=== PATIENT | male | born 1980 | race Caucasian/White ===

== ENCOUNTER 2017-12-29 12:35 | Inpatient (IN) | payer MEDICARE, OTHER ==
[~2017-12-29] VITALS: Ht 182.9 cm; Wt 65.9 kg
[~2017-12-29 12:35] MED LIST: DRON2.5C10 PO; EPIN0.3A3 IM; MECL25TA3 PO; PROM25SU46 RC
[2017-12-29 14:15] LABS: CLARITY,URINE CLEAR (Clear); COLOR,URINE STRAW (Yellow); GLUCOSE, URINE NEGATIVE (Neg); KETONES,URINE NEGATIVE (Neg); LEUKOCYTE ESTERASE ,URINE NEGATIVE (Neg); NITRITES, URINE NEGATIVE (Neg); OCCULT BLOOD,URINE NEGATIVE (Neg); PROTEIN,URINE NEGATIVE (Neg); UROBILINOGEN,URINE 0.2 E.U/dL (0.2-1.0)
[2017-12-29] MEDS ORDERED: HYDROmorphone 1 mg/ml syringe IM ONE (14:15)
[2017-12-29 14:16] LABS: UA COLLECTION TYPE CLN CATCH MIDSTREAM
[2017-12-29] MEDS ORDERED: HYDROmorphone 1 mg/ml syringe IV ONE (15:40)
[2017-12-29] MEDS ORDERED: ondansetron/PF 4mg/2ml inj IV ONE (15:40)
[2017-12-29 16:09] LABS: BASOPHILS % (AUTO) 0.4 % (0-1); EOSINOPHILS # (AUTO) 0.3 X10'3 (0-0.9); EOSINOPHILS % (AUTO) 5.4 % (0-6); HEMATOCRIT 40.7 % (42.0-52.0); HEMOGLOBIN 13.6 g/dl (14.0-17.9); LYMPHOCYTES # (AUTO) 1.3 X10'3 (1.1-4.8); MEAN CORPUSCULAR HEMOGLOBIN 31.7 PG (27.0-31.0); MEAN CORPUSCULAR HGB CONC 33.4 % (33.0-36.5); MEAN CORPUSCULAR VOLUME 94.9 FL (78-98); MEAN PLATELET VOLUME 6.8 FL (7.4-10.4); MONOCYTES # (AUTO) 0.3 X10'3 (0-0.9); MONOCYTES % (AUTO) 6.7 % (2-12); NEUTROPHILS # (AUTO) 2.9 X10'3 (1.8-7.7); NEUTROPHILS % (AUTO) 60.5 % (42-75); PLATELET COUNT 279 X10'3 (140-440); RED BLOOD COUNT 4.29 X10'6 (4.70-6.10); RED CELL DISTRIBUTION WIDTH 13.3 % (11.5-14.5); WHITE BLOOD COUNT 4.8 X10'3 (4.5-11.0)
[2017-12-29 16:23] LABS: ALANINE AMINOTRANSFERASE 27 U/L (12-78); ALBUMIN 3.8 G/DL (3.4-5.0); ALBUMIN/GLOBULIN RATIO 1.1 (1.1-1.5); ALKALINE PHOSPHATASE 65 IU/L (46-116); ANION GAP 7 (8-16); ASPARTATE AMINO TRANSFERASE 15 U/L (10-37); BILIRUBIN,TOTAL 0.9 MG/DL (0.1-1.0); BLOOD UREA NITROGEN 14 MG/DL (7-18); BUN/CREATININE RATIO 14.9 (5.4-32.0); CALCIUM 9.3 MG/DL (8.5-10.1); CHLORIDE 104 MMOL/L (99-107); CREATININE 0.94 MG/DL (0.60-1.10); GLUCOSE 81 MG/DL (70-104); POTASSIUM 3.7 MMOL/L (3.5-5.1); SODIUM 141 MMOL/L (135-145); TOTAL CARBON DIOXIDE 30.1 MMOL/L (24-32); TOTAL PROTEIN 7.4 G/DL (6.4-8.2); eGFR > 90 ML/MIN
[2017-12-29] MEDS ORDERED: magnesium Cl slow-release 64mg tablet PO PRN (17:45)
[2017-12-29] MEDS ORDERED: metoclopramide 5 mg/ml inj IV PRN (17:45)
[2017-12-29] MEDS ORDERED: acetaminophen 325mg tablet PO PRN ×2 (17:45)
[2017-12-29] MEDS ORDERED: magnesium hydroxide 30ml (MOM) UD suspension PO PRN (17:45)
[2017-12-29] MEDS ORDERED: magnesium 1gm/100ml D5W IVPB 100 ML IV PRN (17:45)
[2017-12-29] MEDS ORDERED: potassium Cl 40MEQ/NS 500ml 500 ML IV PRN ×2 (17:45)
[2017-12-29] MEDS ORDERED: potassium Cl 20 mEq SR tablet PO PRN ×2 (17:45)
[2017-12-29] MEDS ORDERED: magnesium 4gm in 100ml NS 100 ML IV PRN (17:45)
[2017-12-29] MEDS ORDERED: mag hydrox/Alum hydrox/simeth 30ml oral suspension PO PRN (17:45)
[2017-12-29 18:13] LABS: INR 1.1 INR; PARTIAL THROMBOPLASTIN TIME 28 SECONDS (22-32)
[2017-12-29] MEDS: normal saline 1000ml 1,000 ML IV SCH (18:17)
[2017-12-29] MEDS: morphine 2 MG/ML inj. syringe IV PRN ×2 (18:38→22:07)
[2017-12-29] MEDS ORDERED: temazepam 15mg capsule PO PRN (21:00)
[2017-12-29 21:30] VITALS: BP 134/78
[2017-12-29] MEDS ORDERED: HYDROcodone/acetaminophen 10/325mg tab PO PRN (23:05)
[2017-12-30] VITALS (16 sets, daily range): BP systolic 95–156; BP diastolic 51–79
[2017-12-30] MEDS: LORazepam 2 mg/ml vial IV PRN ×3 (00:29→19:05)
[2017-12-30] MEDS: morphine 2 MG/ML inj. syringe IV PRN ×5 (02:03→20:26)
[2017-12-30] MEDS: normal saline 1000ml 1,000 ML IV SCH ×3 (04:02→23:42)
[2017-12-30 04:59] LABS: BASOPHILS # (AUTO) 0.1 X10'3 (0-0.2); BASOPHILS % (AUTO) 1.1 % (0-1); EOSINOPHILS # (AUTO) 0.4 X10'3 (0-0.9); EOSINOPHILS % (AUTO) 8.2 % (0-6); HEMATOCRIT 37.7 % (42.0-52.0); HEMOGLOBIN 12.5 g/dl (14.0-17.9); LYMPHOCYTES # (AUTO) 1.6 X10'3 (1.1-4.8); LYMPHOCYTES % (AUTO) 34.1 % (21-51); MEAN CORPUSCULAR HEMOGLOBIN 31.3 PG (27.0-31.0); MEAN CORPUSCULAR HGB CONC 33.2 % (33.0-36.5); MEAN CORPUSCULAR VOLUME 94.2 FL (78-98); MEAN PLATELET VOLUME 6.9 FL (7.4-10.4); MONOCYTES # (AUTO) 0.3 X10'3 (0-0.9); MONOCYTES % (AUTO) 7.4 % (2-12); NEUTROPHILS # (AUTO) 2.3 X10'3 (1.8-7.7); NEUTROPHILS % (AUTO) 49.2 % (42-75); PLATELET COUNT 277 X10'3 (140-440); RED CELL DISTRIBUTION WIDTH 13.4 % (11.5-14.5); WHITE BLOOD COUNT 4.7 X10'3 (4.5-11.0)
[2017-12-30 05:22] LABS: ALANINE AMINOTRANSFERASE 25 U/L (12-78); ALBUMIN 3.5 G/DL (3.4-5.0); ALBUMIN/GLOBULIN RATIO 1.1 (1.1-1.5); ALKALINE PHOSPHATASE 59 IU/L (46-116); ANION GAP 6 (8-16); ASPARTATE AMINO TRANSFERASE 13 U/L (10-37); BILIRUBIN,TOTAL 0.7 MG/DL (0.1-1.0); BLOOD UREA NITROGEN 14 MG/DL (7-18); BUN/CREATININE RATIO 15.4 (5.4-32.0); CALCIUM 9.2 MG/DL (8.5-10.1); CHLORIDE 105 MMOL/L (99-107); CREATININE 0.91 MG/DL (0.60-1.10); GLUCOSE 88 MG/DL (70-104); MAGNESIUM 1.9 MG/DL (1.5-2.4); POTASSIUM 4.1 MMOL/L (3.5-5.1); SODIUM 143 MMOL/L (135-145); TOTAL PROTEIN 6.7 G/DL (6.4-8.2); eGFR > 90 ML/MIN
[2017-12-30] MEDS: K and/or MAG REPLACEMENT MC SCH (07:02)
[2017-12-30] MEDS ORDERED: clindamycin phosphate 150mg/ml inj. ONE (07:59)
[2017-12-30] MEDS ORDERED: BUPIVAcaine 0.5% inj/PF 30 ml vial ONE (08:00)
[2017-12-30] MEDS ORDERED: ringers solution, lacted 1,000 ML IV SCH ×2 (08:31→08:33)
[2017-12-30] MEDS ORDERED: ondansetron/PF 4mg/2ml inj IV PRN ×2 (08:35)
[2017-12-30] MEDS ORDERED: morphine 4 MG/ML inj SYRINge IV PRN ×4 (08:35)
[2017-12-30] MEDS ORDERED: proCHLORperazine 10 MG/2 ml inj IV PRN ×2 (08:35)
[2017-12-30] MEDS ORDERED: meperidine/PF 25mg/ml syringe IV PRN ×6 (08:35)
[2017-12-30] MEDS ORDERED: midazolam 2 mg/2 ml injection ONE (09:54)
[2017-12-30] MEDS ORDERED: meperidine/PF 50mg/ml syringe ONE (09:54)
[2017-12-30] MEDS ORDERED: fentaNYL/PF 50MCG/1 ML 2ML syringe ONE (09:54)
[2017-12-30] MEDS: oxyCODONE/APAP 10/325mg tablet PO PRN ×3 (14:27→22:28)
[2017-12-30] MEDS: ondansetron/PF 4mg/2ml inj IV PRN (21:20)
[2017-12-31] VITALS: BP 111/63
[2017-12-31] MEDS: morphine 2 MG/ML inj. syringe IV PRN ×2 (00:51→04:54)
[2017-12-31] MEDS: LORazepam 2 mg/ml vial IV PRN ×2 (01:47→05:45)
[2017-12-31] MEDS: oxyCODONE/APAP 10/325mg tablet PO PRN ×4 (02:46→23:13)
[2017-12-31] MEDS: normal saline 1000ml 1,000 ML IV SCH ×3 (02:48→21:19)
[2017-12-31 05:23] LABS: BASOPHILS % (AUTO) 0.4 % (0-1); EOSINOPHILS # (AUTO) 0.5 X10'3 (0-0.9); EOSINOPHILS % (AUTO) 6.1 % (0-6); HEMATOCRIT 35.9 % (42.0-52.0); LYMPHOCYTES # (AUTO) 0.9 X10'3 (1.1-4.8); LYMPHOCYTES % (AUTO) 10.8 % (21-51); MEAN CORPUSCULAR HEMOGLOBIN 31.6 PG (27.0-31.0); MEAN CORPUSCULAR HGB CONC 33.3 % (33.0-36.5); MEAN CORPUSCULAR VOLUME 94.7 FL (78-98); MEAN PLATELET VOLUME 7.2 FL (7.4-10.4); MONOCYTES # (AUTO) 0.4 X10'3 (0-0.9); MONOCYTES % (AUTO) 4.6 % (2-12); NEUTROPHILS # (AUTO) 6.3 X10'3 (1.8-7.7); NEUTROPHILS % (AUTO) 78.1 % (42-75); PLATELET COUNT 250 X10'3 (140-440); RED BLOOD COUNT 3.79 X10'6 (4.70-6.10); RED CELL DISTRIBUTION WIDTH 13.3 % (11.5-14.5)
[2017-12-31 05:33] LABS: ALANINE AMINOTRANSFERASE 23 U/L (12-78); ALBUMIN 3.2 G/DL (3.4-5.0); ALKALINE PHOSPHATASE 58 IU/L (46-116); ANION GAP 5 (8-16); ASPARTATE AMINO TRANSFERASE 12 U/L (10-37); BILIRUBIN,TOTAL 0.6 MG/DL (0.1-1.0); BLOOD UREA NITROGEN 12 MG/DL (7-18); BUN/CREATININE RATIO 14.1 (5.4-32.0); CALCIUM 8.8 MG/DL (8.5-10.1); CHLORIDE 105 MMOL/L (99-107); CREATININE 0.85 MG/DL (0.60-1.10); GLUCOSE 90 MG/DL (70-104); MAGNESIUM 1.7 MG/DL (1.5-2.4); POTASSIUM 3.7 MMOL/L (3.5-5.1); SODIUM 142 MMOL/L (135-145); TOTAL CARBON DIOXIDE 32.4 MMOL/L (24-32); TOTAL PROTEIN 6.4 G/DL (6.4-8.2); eGFR > 90 ML/MIN
[2017-12-31] MEDS ORDERED: morphine 10mg/ml inj. IV PRN (05:56)
[2017-12-31 07:40] VITALS: BP 121/70
[2017-12-31] MEDS: K and/or MAG REPLACEMENT MC SCH (08:00)
[2017-12-31 11:00] VITALS: BP 116/64
[2017-12-31] MEDS: oxyCODONE/APAP 5-325mg tablet PO PRN ×2 (17:04→21:20)
[2017-12-31] MEDS: ondansetron/PF 4mg/2ml inj IV PRN (18:50)
[2017-12-31] MEDS: docusate sod 100mg capsule PO SCH (19:07)
[2017-12-31 20:00] VITALS: BP 118/68
[2018-01-01] VITALS: BP 113/65
[2018-01-01] MEDS: oxyCODONE/APAP 5-325mg tablet PO PRN ×4 (01:12→13:33)
[2018-01-01] MEDS: oxyCODONE/APAP 10/325mg tablet PO PRN ×4 (03:25→15:29)
[2018-01-01 04:31] LABS: BASOPHILS % (AUTO) 0.2 % (0-1); EOSINOPHILS # (AUTO) 0.8 X10'3 (0-0.9); EOSINOPHILS % (AUTO) 13.7 % (0-6); HEMATOCRIT 36.2 % (42.0-52.0); LYMPHOCYTES # (AUTO) 1.6 X10'3 (1.1-4.8); LYMPHOCYTES % (AUTO) 26.4 % (21-51); MEAN CORPUSCULAR HEMOGLOBIN 31.5 PG (27.0-31.0); MEAN CORPUSCULAR HGB CONC 33.2 % (33.0-36.5); MEAN CORPUSCULAR VOLUME 94.8 FL (78-98); MEAN PLATELET VOLUME 7.3 FL (7.4-10.4); MONOCYTES # (AUTO) 0.3 X10'3 (0-0.9); MONOCYTES % (AUTO) 4.6 % (2-12); NEUTROPHILS # (AUTO) 3.3 X10'3 (1.8-7.7); NEUTROPHILS % (AUTO) 55.1 % (42-75); PLATELET COUNT 249 X10'3 (140-440); RED BLOOD COUNT 3.81 X10'6 (4.70-6.10); RED CELL DISTRIBUTION WIDTH 13.2 % (11.5-14.5); WHITE BLOOD COUNT 5.9 X10'3 (4.5-11.0)
[2018-01-01 04:38] LABS: ALANINE AMINOTRANSFERASE 21 U/L (12-78); ALBUMIN 3.1 G/DL (3.4-5.0); ALKALINE PHOSPHATASE 73 IU/L (46-116); ANION GAP 5 (8-16); ASPARTATE AMINO TRANSFERASE 11 U/L (10-37); BILIRUBIN,TOTAL 0.4 MG/DL (0.1-1.0); BLOOD UREA NITROGEN 12 MG/DL (7-18); BUN/CREATININE RATIO 12.6 (5.4-32.0); CALCIUM 8.7 MG/DL (8.5-10.1); CHLORIDE 105 MMOL/L (99-107); CREATININE 0.95 MG/DL (0.60-1.10); GLUCOSE 96 MG/DL (70-104); MAGNESIUM 1.7 MG/DL (1.5-2.4); SODIUM 142 MMOL/L (135-145); TOTAL CARBON DIOXIDE 32.5 MMOL/L (24-32); TOTAL PROTEIN 6.3 G/DL (6.4-8.2); eGFR 90 ML/MIN
[2018-01-01] MEDS: ondansetron/PF 4mg/2ml inj IV PRN ×2 (05:03→13:26)
[2018-01-01] MEDS: docusate sod 100mg capsule PO SCH (07:28)
[2018-01-01 07:30] VITALS: BP 117/78
[2018-01-01] MEDS: normal saline 1000ml 1,000 ML IV SCH (07:32)
[2018-01-01] MEDS: K and/or MAG REPLACEMENT MC SCH (08:00)
[2018-01-01] MEDS ORDERED: magnesium 2GM in 50ml NS 50 ML IV PRN (09:43)
[2018-01-01 11:00] VITALS: BP 116/76
[2018-01-01] MEDS ORDERED: OXYC-145 PO (13:52)
[2018-01-01] MEDS ORDERED: SULF1TAB49 PO (13:52)
[2018-01-01] MEDS ORDERED: OXYC-150 PO (13:52)
== END 2018-01-01 17:33 | disposition home or self-care (01) | DRG 711 ==
LOC: ER 12:35 → ED HOLD 17:42 → SUR 3N 21:30
PROVIDERS: ADMIT Emergency Medicine; ATTEND Family Medicine
PROC: 0Y960ZZ Drainage of Left Inguinal Region, Open Approach (ICD-10-PCS; 2017-12-30)
PROC: 0VTB0ZZ Resection of Left Testis, Open Approach (ICD-10-PCS; principal; 2017-12-30 08:05)
DX: N50.1 Vascular disorders of male genital organs (principal); N44.00 Torsion of testis, unspecified; F43.10 Post-traumatic stress disorder, unspecified; N43.3 Hydrocele, unspecified; N43.41 Spermatocele of epididymis, single; F12.90 Cannabis use, unspecified, uncomplicated; Z60.2 Problems related to living alone; F32.9 Major depressive disorder, single episode, unspecified; F41.9 Anxiety disorder, unspecified; G89.29 Other chronic pain; Z59.0 Homelessness; Z88.0 Allergy status to penicillin; Z88.7 Allergy status to serum and vaccine; Z91.041 Radiographic dye allergy status; Z79.899 Other long term (current) drug therapy; Z86.73 Personal history of transient ischemic attack (TIA), and cerebral infarction without residual deficits
CPT/HCPCS: 36415; 71045; 76870; 80053; 81003; 83735; 85025; 85610; 85730; 87070; 96372; 99285; A6446; A7000; G0378; J1170; J2060; J2175; J2250; J2270; J2405; J3010; J3490; J7030; J7120

== ENCOUNTER 2025-02-01 19:15 | Emergency (ER) | payer MEDICARE, OTHER ==
[~2025-02-01] VITALS: Ht 172.7 cm; Wt 58.0 kg
[~2025-02-01 19:15] MED LIST changes: +OXYC-145 PO; +OXYC-150 PO; -PROM25SU46 RC; +PROM25SU9 RC
--- NOTE | 2025-02-01 19:25 | ELECTROCARDIOGRAPH REPORT ---
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 Kashif Hinojosa Measurements Intervals [place] Rate: 72 P: 79 DC: 151 QRS: 93 QRSD: 97 T: 55 QT: 393 QTc: 431 Interpretive Statements Sinus rhythm Biatrial enlargement Borderline right axis deviation Baseline wander in lead(s) I,aVR Electronically Signed On 02-01-2025 21:37:[address] Kashif Hinojosa Please click the below link to view image of tracing.
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
[2025-02-01 20:54] LABS: MEAN PLATELET VOLUME 8.2 FL (7.4-10.4); RED CELL DISTRIBUTION WIDTH 13.0 % (11.5-14.5)
[2025-02-01 21:15] LABS: APTT 28 SECONDS (22-32); INR 1.1 INR
[2025-02-01 21:16] LABS: CREATININE 0.84 MG/DL (0.60-1.10); PRO BRAIN NATRIURETIC PEPTIDE 132 PG/ML (0-125); TOTAL CARBON DIOXIDE 30.7 MMOL/L (24-32); eCRCL 92 ML/MIN; eGFR > 90 ML/MIN
--- NOTE | 2025-02-01 22:02 | RADIOLOGY REPORT ---
CHEST RADIOGRAPH REASON FOR EXAM: CHEST PAIN COMPARISON: None TECHNIQUE: One view of the chest is provided FINDINGS: The cardiomediastinal silhouette is within normal limits for technique. There is no focal airspace disease. There is no significant pleural effusion. No acute bony abnormality is identified. IMPRESSION: No radiographic evidence of acute cardiopulmonary process.
[2025-02-01] MEDS ORDERED: CYCL-1 PO (23:02)
[2025-02-01 23:13] VITALS: BP 140/82; PULSE 80; RESP 18; TEMP 98.6; O2SAT 99
== END 2025-02-01 23:14 | disposition home or self-care (01) ==
LOC: ER 19:16
DX: Z00.00 Encounter for general adult medical examination without abnormal findings (principal); T75.4XXA Electrocution, initial encounter; F12.90 Cannabis use, unspecified, uncomplicated; F41.9 Anxiety disorder, unspecified; F32.A Depression, unspecified; Z91.041 Radiographic dye allergy status; Z59.00 Homelessness unspecified; Z88.0 Allergy status to penicillin; Z90.79 Acquired absence of other genital organ(s); Z79.899 Other long term (current) drug therapy; Z98.890 Other specified postprocedural states; Z56.0 Unemployment, unspecified; Z60.2 Problems related to living alone; W86.8XXA Exposure to other electric current, initial encounter; Y93.89 Activity, other specified; Y92.89 Other specified places as the place of occurrence of the external cause; Y99.8 Other external cause status
CPT/HCPCS: 36415; 71045; 80053; 83735; 83880; 84484; 85025; 85610; 85651; 85730; 86140; 93005; 99285